=== PATIENT | male | born 1985 | race Caucasian/White ===

== ENCOUNTER 2017-12-16 14:53 | Emergency (ER) | payer OTHER ==
[~2017-12-16] VITALS: Ht 182.9 cm; Wt 88.9 kg
[~2017-12-16 14:53] MED LIST: IBUPROFEN 600600 M1 PO; NOHOMEMEDICATIONS
[2017-12-16 15:20] LABS: ABSOLUTE BASOPHILS 0.1 thou/uL (0.0-0.2); ABSOLUTE EOSINOPHILS 0.1 thou/uL (0.0-0.7); ABSOLUTE LYMPHOCYTES 3.1 thou/uL (0.8-5.3); ABSOLUTE NEUTROPHILS 9.8 thou/uL (1.6-8.1); BASOPHILS 0.6 %; EOSINOPHILS 0.4 %; HEMATOCRIT 44.4 % (42.0-52.0); LYMPHOCYTES 21.9 %; MCH 32.6 pg (26.0-34.0); MCHC 33.8 g/dL (28.0-37.0); MCV 96.7 fL (80.0-100.0); MONOCYTES 7.1 %; MPV 8.7 fl. (7.2-11.1); NUCLEATED RBCS 0 /100WBC; PLATELET COUNT* 250 thou/uL (150-400); RBC 4.59 mil/uL (4.50-6.00); RDW-CV 13.6 % (10.5-14.5)
[2017-12-16 15:27] LABS: ANION GAP 10 mmol/L (7-16); BUN 10 mg/dL (7-18); CALCIUM 8.8 mg/dL (8.5-10.1); CHLORIDE 100 mmol/L (98-107); CO2 23 mmol/L (21-32); GLUCOSE 86 mg/dL (70-99); POTASSIUM 3.9 mmol/L (3.5-5.1); SODIUM 133 mmol/L (136-145)
[2017-12-16 15:34] LABS: ALBUMIN 4.1 g/dL (3.4-5.0); ALKALINE PHOSPHATASE 105 U/L (46-116); LIPASE 127 U/L (73-393); SGOT 27 U/L (15-37); SGPT 35 U/L (30-65); TOTAL BILIRUBIN 0.5 mg/dL (<0.1-1.0); TROPONIN-I LEVEL <0.06 ng/mL (<0.06)
[2017-12-16] MEDS ORDERED: HYDROCODONE-AP1 EAC6 PO (16:09)
[2017-12-16 16:13] VITALS: BP 114/85
--- NOTE | 2017-12-17 12:00 | EKG ---
[place] [address] ELECTROCARDIOGRAM REPORT Name: SAADIA BOND Room: [facility]#: [id number] Admission: 12/16/17 Attend Phys: Discharge: 12/16/17 Date of : 85 Report #: [id number] THIS REPORT FOR: //name// [facility] ED Test Date: 2017-12-16 Test Time: 15:29:46 Pat Name: SAADIA BOND Department: Room: Gender: M [employer]: MALKA : 1985 Requested By: Pancho Boyer Order Number: [id number] MD: Wilton Bravo Measurements Intervals [place] Rate: 98 P: 76 ND: 135 QRS: 74 QRSD: 96 T: 51 QT: 359 QTc: 459 Interpretive Statements Sinus rhythm Left atrial enlargement No previous ECG available for comparison Electronically Signed On 12-17-2017 11:59:46 CDT by Wilton Bravo [email or web address] <ELECTRONICALLY SIGNED> By: Wilton Bravo MD, FACC 12/17/17 1159 1529 1529 Wilton Bravo MD, FACC /EPI
== END 2017-12-16 16:14 | disposition home or self-care (01) ==
LOC: M.ERS 14:53
PROVIDERS: Emergency Medicine Emergency Medical Services
DX: R07.81 Pleurodynia (principal); R07.89 Other chest pain; R10.11 Right upper quadrant pain